=== PATIENT | male | born 1985 | race Caucasian/White ===

== ENCOUNTER 2016-10-07 18:17 | Emergency (ER) | payer OTHER ==
--- NOTE | 2016-10-07 19:07 | ER Document Report ---
HPI - HPI Patient complains to provider of: ankle injury Onset: Other - 4 days ago Onset/Duration: Persistent Quality of pain: Achy Pain Level: 2 Context: Patient states that he stepped off of the ladder wrong and rolled his left ankle. Patient complains of left lateral ankle pain that radiates into his foot. Associated Symptoms: Other - Left ankle and foot pain Exacerbated by: Movement, Walking Relieved by: Denies Similar symptoms previously: No Recently seen / treated by doctor: No - ROS ROS below otherwise negative: Yes Systems Reviewed and Negative: Yes All other systems reviewed and negative - CONSTITUTIONAL Constitutional: DENIES: Fever - GASTROINTESTINAL Gastrointestinal: DENIES: Nausea, Patient vomiting - MUSCULOSKELETAL Musculoskeletal: REPORTS: Extremity pain - Left foot and ankle, Swelling - DERM Skin Color: Normal Skin Problems: None Past Medical History - General Information source: Patient - Social History Smoking Status: Never Smoker Frequency of alcohol use: None Drug Abuse: None Occupation: auto electrician Lives with: Family Family History: Reviewed & Not Pertinent Patient has suicidal ideation: No Patient has homicidal ideation: No Renal/ Medical History: Denies: Hx Peritoneal Dialysis GI Medical History: Reports: Hx Gastroesophageal Reflux Disease Past Surgical History: Reports: Hx Orthopedic Surgery - Immunizations Hx Diphtheria, Pertussis, Tetanus Vaccination: No Vertical Provider Document - CONSTITUTIONAL Agree With Documented VS: Yes Exam Limitations: No Limitations General Appearance: WD/WN, No Apparent Distress - INFECTION CONTROL TRAVEL OUTSIDE OF THE [place] IN LAST 30 DAYS: No - HEENT HEENT: Atraumatic, Normocephalic - NECK Neck: Normal Inspection - RESPIRATORY Respiratory: No Respiratory Distress O2 Sat by Pulse Oximetry: 99 - CARDIOVASCULAR Pulses: Normal: Dorsalis pedis - MUSCULOSKELETAL/EXTREMETIES Musculoskeletal/Extremeties: MAEW, Tender - Left ankle tenderness over lateral malleolar area with 1+ edema. Patient with left midfoot tenderness, 1+ edema. No deformity or ecchymosis - NEURO Level of Consciousness: Awake, Alert, Appropriate Motor/Sensory: No Motor Deficit - DERM Integumentary: Warm, Dry, No Rash Course - Re-evaluation Re-evalutation: 10/07/16 19:06 Patient declines any Tylenol or Motrin - Vital Signs Vital signs: Temp Pulse Resp BP Pulse Ox 98.1 F 109 H 18 147/104 H 99 10/07/16 18:27 10/07/16 18:27 10/07/16 18:27 10/07/16 18:27 10/07/16 18:27 - Diagnostic Test Radiology reviewed: Pending, Image reviewed Procedures - Immobilization Left Ankle Pre-Proc Neuro Vasc Exam: Normal Immobilizer type: Ankle stirrup Performed by: PCT Post-Proc Neuro Vasc Exam: Normal Alignment checked and good: Yes Discharge - Discharge Clinical Impression: Foot pain, left Left ankle sprain Qualifiers: Encounter type: initial encounter Involved ligament of ankle: unspecified ligament Qualified Code(s): S93.402A - Sprain of unspecified ligament of left ankle, initial encounter Condition: Stable Disposition: HOME, SELF-CARE Instructions: Sprained Ankle ([facility]), Oral Narcotic Medication ([facility]), Ice Packs ( [facility]), Use of Crutches ([facility]), Ankle Stirrup Splint ([facility]) Additional Instructions: Return immediately for any new or worsening symptoms Followup with your primary care provider, call tomorrow to make a followup appointment Weightbearing as tolerated Follow-up with orthopedic doctor, call Sunday for an appointment time Prescriptions: Hydrocodone/Acetaminophen [[place] 5-325 Tablet] 1 each PO Q4 PRN #15 tablet PRN Reason: Forms: Return to Work Referrals: [facility] ([facility] [Provider Group] - Follow up in 3-5 days
[2016-10-07 20:35] VITALS: BP 139/98
== END 2016-10-07 20:34 | disposition home or self-care (01) ==
LOC: ER 18:17
DX: S93.402A Sprain of unspecified ligament of left ankle, initial encounter (principal); X50.0XXA Overexertion from strenuous movement or load, initial encounter; M25.572 Pain in left ankle and joints of left foot; M79.672 Pain in left foot
CPT/HCPCS: 99283; 73610; 73630; L1902

== ENCOUNTER 2016-12-03 18:43 | Emergency (ER) | payer OTHER ==
[2016-12-03] MEDS ORDERED: KETOROLAC TROMETHAMINE 60 MG/2 ML SDV IM ONE (22:27)
[2016-12-03] MEDS ORDERED: LIDOCAINE 5% (700 MG) TRANSDERMAL ADH..PATCH TP ONE (22:27)
[2016-12-03] MEDS ORDERED: PREDNISONE 20 MG TABLET PO ONE (22:27)
[2016-12-03] MEDS ORDERED: HYDROCODONE/ACETAMINOPHEN 5-325 MG 6 TAB/DSPK PO PRN (22:27)
--- NOTE | 2016-12-03 22:33 | ER Document Report ---
ED General - General Chief Complaint: Back Pain Stated Complaint: BACK PAIN,LEG PAIN, TESTICULAR PAIN Time Seen by Provider: 12/03/16 22:07 TRAVEL OUTSIDE OF THE [place] IN LAST 30 DAYS: No - HPI Patient complains to provider of: Back pain Notes: Patient complaining of lower back pain worse after he was on the inversion table patient states was performing heavy lifting approximately 3 days ago. Patient states now pain lower back going down the back of his leg sharp shooting. Patient also states pain in the right testicle. Denies any fever chills nausea vomiting. Patient denies any numbness or tingling no saddle anesthesias no bowel or bladder incontinence. Patient able ambulate around the room states is difficult with movement difficult lying down pain increases. Denies any IV drug use - Related Data Allergies/Adverse Reactions: No Known Allergies Allergy (Verified 12/03/16 19:02) Past Medical History - Social History Smoking Status: Unknown if Ever Smoked Family History: Reviewed & Not Pertinent Patient has suicidal ideation: No Patient has homicidal ideation: No Renal/ Medical History: Denies: Hx Peritoneal Dialysis GI Medical History: Reports: Hx Gastroesophageal Reflux Disease Past Surgical History: Reports: Hx Orthopedic Surgery - Immunizations Hx Diphtheria, Pertussis, Tetanus Vaccination: No Review of Systems - Review of Systems Constitutional: No symptoms reported EENT: No symptoms reported Cardiovascular: No symptoms reported Respiratory: No symptoms reported Gastrointestinal: No symptoms reported Genitourinary: No symptoms reported Male Genitourinary: No symptoms reported Musculoskeletal: Back pain Skin: No symptoms reported Hematologic/Lymphatic: No symptoms reported Neurological/Psychological: No symptoms reported -: Yes All other systems reviewed and negative Physical Exam - Vital signs Vitals: Temp Pulse Resp BP Pulse Ox 98.7 F 93 18 152/103 H 97 12/03/16 19:01 12/03/16 19:01 12/03/16 19:01 12/03/16 19:01 12/03/16 19:01 Interpretation: Normal - General General appearance: Appears well, Alert - HEENT Head: Normocephalic, Atraumatic Eyes: Normal Pupils: PERRL - Respiratory Respiratory status: No respiratory distress Chest status: Nontender Breath sounds: Normal Chest palpation: Normal - Cardiovascular Rhythm: Regular Heart sounds: Normal auscultation Murmur: No - Abdominal Inspection: Normal Distension: No distension Bowel sounds: Normal Tenderness: Nontender Organomegaly: No organomegaly - Genitourinary Inspection: Normal Tenderness: Nontender Cremasteric reflex: Normal Scrotum: Normal - Back Back: Normal, Tender - Patient with bilateral paraspinal tenderness no midline tenderness. Patient also has reproducible symptoms when palpated piriformis muscle bilateral buttocks. Is able to bend over to take his pants down so I can examine his testicles - Extremities General upper extremity: Normal inspection, Nontender, Normal color, Normal ROM , Normal temperature General lower extremity: Normal inspection, Nontender, Normal color, Normal ROM , Normal temperature, Normal weight bearing. No: Emily's sign - Neurological Neuro grossly intact: Yes Cognition: Normal Orientation: AAOx4 Cable Coma Scale Eye Opening: Spontaneous Harrison Coma Scale Verbal: Oriented Cable Coma Scale Motor: Obeys Commands Harrison Coma Scale Total: 15 Speech: Normal Motor strength normal: LUE, RUE, LLE, RLE Sensory: Normal - Psychological Associated symptoms: Normal affect, Normal mood - Skin Skin Temperature: Warm Skin Moisture: Dry Skin Color: Normal Course - Re-evaluation Re-evalutation: 12/04/16 01:03 The patient presents with low back pain without signs of spinal cord compression , cauda equina syndrome, infection, aneurysm, or other serious etiology. The patient is neurologically intact. Given the extremely low risk of these diagnoses further testing and evaluation for these possibilities does not appear to be indicated at this time. The patient has been instructed to return if the symptoms worsen or change in any way. - Vital Signs Vital signs: Temp Pulse Resp BP Pulse Ox 98.7 F 79 18 141/92 H 98 12/03/16 19:01 12/03/16 22:52 12/03/16 19:01 12/03/16 22:52 12/03/16 22:52 Discharge - Discharge Clinical Impression: Back strain Qualifiers: Encounter type: initial encounter Qualified Code(s): S39.012A - Strain of muscle, fascia and tendon of lower back, initial encounter Sciatica Qualifiers: Laterality: bilateral Qualified Code(s): M54.31 - Sciatica, right side Condition: Good Disposition: HOME, SELF-CARE Instructions: Ice Packs ([facility]), Low Back Pain ([facility]), Oral Narcotic Medication ( [facility]), Sciatica ([facility]) Additional Instructions: Your examination today is consistent with a lower back strain. The pain going down the back your legs called sciatica we will treat you with steroids. recommend he take anti-inflammatory medication. Also he may use ice and heat for pain control. The prescription pain medication is for very severe pain. Recommend light activity if anything hurts please stop this activity. If yourr pain continues is not any better in the next 3-5 days would recommend consulting with the orthopedic doctor provided. Prescriptions: Ibuprofen [Motrin 600 mg Tablet] 600 mg PO Q8HP PRN #90 tablet PRN Reason: Hydrocodone Bit/Acetaminophen [Hydrocodon-Acetaminophen 5-325] 1 - 2 each PO Q6 #30 tablet Prednisone [Deltasone] 60 mg PO DAILY 5 Days Forms: Return to Work Referrals: ERIC WILLS DO [ACTIVE STAFF] - Follow up as needed
[2016-12-03 22:36] LABS: APPEARANCE,URINE CLEAR; BILIRUBIN,URINE NEGATIVE (NEGATIVE); GLUCOSE, URINE NEGATIVE (NEGATIVE); KETONES,URINE NEGATIVE (NEGATIVE); LEUKOCYTE ESTERASE,URINE NEGATIVE (NEGATIVE); NITRITE,URINE NEGATIVE (NEGATIVE); PROTEIN,URINE NEGATIVE (NEGATIVE); URINE SPECIFIC GRAVITY 1.026; UROBILINOGEN,URINE NEGATIVE mg/dL (<2.0)
[2016-12-03 22:54] VITALS: BP 141/92
== END 2016-12-03 22:54 | disposition home or self-care (01) ==
LOC: ER 18:43
DX: S39.012A Strain of muscle, fascia and tendon of lower back, initial encounter (principal); X50.0XXA Overexertion from strenuous movement or load, initial encounter; M54.41 Lumbago with sciatica, right side; N50.811 Right testicular pain
CPT/HCPCS: 99283; 96372; 81001; J1885; J7512

== ENCOUNTER 2017-02-19 20:22 | Emergency (ER) | payer OTHER ==
[2017-02-19 20:47] VITALS: BP 154/116
== END 2017-02-19 21:30 | disposition left against medical advice (07) ==
LOC: ER 20:22
DX: Z53.21 Procedure and treatment not carried out due to patient leaving prior to being seen by health care provider (principal)